=== PATIENT | male | born 1950 | race Caucasian/White ===

== ENCOUNTER 2018-11-12 14:50 | Emergency (ER) | payer MEDICARE, MEDICAID ==
[2018-11-12] MEDS ORDERED: Sodium Chloride 0.9% 10 ML Syringe FLUSH PRN (15:28)
--- NOTE | 2018-11-12 15:34 | EDM.PDOC ---
ED HPI GENERAL MEDICAL PROBLEM - General Chief Complaint: General Stated Complaint: CHEST PAIN Time Seen by Provider: 11/12/18 15:15 Source of Information: Reports: Patient, RN (I talked with RNs at [facility]; [facility] and Od[place]) History Limitations: Reports: Other (some confusion; consistent with his baseline moderate dementia per RN) - History of Present Illness INITIAL COMMENTS - FREE TEXT/NARRATIVE: Patient presents with complaint of headache and chest pressure that started about 1000 (5.5 hours ago) and lasted a couple hours, per patient. He says they are both resolved now. He denies any accompanying blurry vision. The [facility] RNs informed me that he had come up to the nurses station in his wheelchair requesting trip to ER due to headache, chest pain and visual disturbance. 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 While here he has been mostly cooperative but occasionally very irritable and not allowing anyone to come close, do vitals or other assistance. This morning he was like this prior to requesting ER. - Related Data Allergies Allergy/AdvReac Type Severity Reaction Status Date / Time No Known Drug Allergies Allergy Cannot Verified 11/12/18 15:18 Remember Home Meds: Home Meds Metoprolol Tartrate [Lopressor] 100 mg PO 0700,1600 11/12/18 [History] amLODIPine Besylate [Norvasc] 5 mg PO 0900,1600 11/12/18 [History] levETIRAcetam [Keppra] 500 mg PO DAILY 11/12/18 [History] ED ROS GENERAL - Review of Systems Review Of Systems: See Below Constitutional: Denies: Fever, Chills, Malaise, Weakness (not acute) HEENT: Reports: Other (no facial droop or slurred speech). Denies: Eye Discharge, Vision Change Respiratory: Denies: Shortness of Breath, Cough Cardiovascular: Denies: Chest Pain, Lightheadedness, Syncope Endocrine: Denies: Fatigue GI/Abdominal: Reports: Nausea (he complained of nausea at the [facility] per RN; none now). Denies: Abdominal Pain, Vomiting : Reports: No Symptoms Musculoskeletal: Denies: Neck Pain (not acute), Shoulder Pain, Arm Pain, Back Pain, Hand Pain, Leg Pain Skin: Denies: Cyanosis, Jaundice, Mottled, Pallor, Diaphoresis Neurological: Reports: Seizure (he has a seizure disorder but nothing today per RN). Denies: Headache, Syncope Psychiatric: Reports: Agitation (not now but earlier today per RN) ED EXAM, GENERAL - Physical Exam Exam: See Below Exam Limited By: Altered Mental Status (He seems to do fairly well with some things) General Appearance: Alert, WD/WN, No Apparent Distress Eye Exam: Bilateral Eye: EOMI, Normal Inspection, PERRL Ears: Normal External Exam, Hearing Grossly Normal Nose: Normal Inspection, No Blood Throat/Mouth: Normal Inspection, Normal Lips, Normal Oropharynx, Normal Voice, No Airway Compromise Head: Atraumatic, Normocephalic Neck: Normal Inspection, Full Range of Motion Respiratory/Chest: No Respiratory Distress, Lungs Clear, Normal Breath Sounds, No Accessory Muscle Use Cardiovascular: Normal Peripheral Pulses, Regular Rate, Rhythm, No Murmur GI/Abdominal: Normal Bowel Sounds, Soft, Non-Tender, No Organomegaly, No Distention Extremities: Other (complete right paralysis of upper and lower ext. Sensation and circulation are intact.) Neurological: Alert, Oriented (to person and place but partially to time (knows its sunday)) Psychiatric: Normal Affect, Normal Mood Skin Exam: Warm, Dry, Intact, Normal Color, No Rash Course - Vital Signs Last Recorded V/S: Last Vital Signs Temp 97.9 F 11/12/18 15:14 Pulse 61 11/12/18 15:29 Resp 16 11/12/18 15:29 BP 142/63 H 11/12/18 15:29 Pulse Ox 94 L 11/12/18 15:29 - Orders/Labs/Meds Orders: Active Orders 24 hr Category Date Time Status EKG Documentation Completion [RC] ASDIRECTED Care 11/12/18 15:29 Active Sodium Chloride 0.9% [Saline Flush] Med 11/12/18 15:28 Active 10 ml FLUSH Q8HR PRN Saline Lock Insert [OM.PC] Routine Oth 11/12/18 15:28 Ordered EKG 12 Lead [EK] Routine Ther 11/12/18 15:28 Ordered Medication Orders Sodium Chloride (Saline Flush) 10 ml FLUSH Q8HR PRN PRN Reason: keep vein open Labs: Laboratory Tests 11/12/18 11/12/18 Range/Units 15:07 15:07 WBC 7.16 (5.00-10.00) 10^3/uL RBC 4.40 L (4.50-6.00) 10^6/uL Hgb 14.3 (13.0-17.0) g/dL Hct 43.3 (40.0-52.0) % MCV 98.4 H (82.0-92.0) fL MCH 32.5 H (27.0-31.0) pg MCHC 33.0 (32.0-36.0) g/dL RDW 13.7 (11.5-14.5) % Plt Count 192 (150-400) 10^3/uL MPV 10.9 H (7.4-10.4) fL Immature Gran % (Auto) 0.1 (0.0-5.0) % Neut % (Auto) 63.5 (50.0-70.0) % Lymph % (Auto) 27.8 (20.0-40.0) % [place] % (Auto) 7.0 (2.0-8.0) % Eos % (Auto) 1.3 (1.0-3.0) % Baso % (Auto) 0.3 (0.0-1.0) % Immature Gran # (Auto) 0.01 (0.00-0.50) 10^3/uL Neut # (Auto) 4.55 (2.50-7.00) 10^3/uL Lymph # (Auto) 1.99 (1.00-4.00) 10^3/uL [place] # (Auto) 0.50 (0.10-0.80) 10^3/uL Eos # (Auto) 0.09 L (0.10-0.30) 10^3/uL Baso # (Auto) 0.02 (0.00-0.10) 10^3/uL Sodium 145 (136-145) mmol/L Potassium 4.2 (3.3-5.3) mmol/L Chloride 108 (98-115) mmol/L Carbon Dioxide 31.7 (21.0-32.0) mmol/L Anion Gap 9.5 (5-15) mmol/L BUN 20 (6-25) mg/dL Creatinine 0.53 (0.51-1.17) mg/dL Est Cr Clr Drug Dosing 135.82 mL/min Estimated GFR (MDRD) > 60 mL/min Glucose 109 H (75 - 99) mg/dL Calcium 8.8 (8.7-10.3) mg/dL Troponin I < 0.04 (0.00-0.070) ng/mL Meds: Medications Generic Name Dose Route Start Last Admin Trade Name Freq PRN Reason Stop Dose Admin Sodium Chloride 10 ml 11/12/18 15:28 Saline Flush FLUSH Q8HR PRN keep vein open - Re-Assessments/Exams Free Text/Narrative Re-Assessment/Exam: 11/12/18 15:58 Labs and EKG okay. With all symptoms completely resolved prior to ER arrival and normal workup, I feel patient is okay to return to [facility] with no changes in treatment. He should follow up with PCP in a few days. Pt stable at discharge. Departure - Departure Time of Disposition: 15:53 Disposition: DC/Tfer to SNF 03 Condition: Good Clinical Impression: Chest pain with low risk for cardiac etiology - Discharge Information Referrals: Karolyn Elizondo MD [Primary Care Provider] - Forms: ED Department Discharge Additional Instructions: 1. Continue current medications. 2. Follow up with PCP in 2-5 days. - My Orders Last 24 Hours: My Active Orders 11/12/18 15:28 Sodium Chloride 0.9% [Saline Flush] 10 ml FLUSH Q8HR PRN Saline Lock Insert [OM.PC] Routine EKG 12 Lead [EK] Routine 11/12/18 15:29 EKG Documentation Completion [RC] ASDIRECTED - Assessment/Plan Last 24 Hours: My Active Orders 11/12/18 15:28 Sodium Chloride 0.9% [Saline Flush] 10 ml FLUSH Q8HR PRN Saline Lock Insert [OM.PC] Routine EKG 12 Lead [EK] Routine 11/12/18 15:29 EKG Documentation Completion [RC] ASDIRECTED
[2018-11-12 15:44] LABS: ANION GAP 9.5 mmol/L (5-15); CHLORIDE,CL 108 mmol/L (98-115); SODIUM,NA 145 mmol/L (136-145)
[2018-11-12] MEDS ORDERED: Cephalexin 250 MG Cap PO ONE (17:18)
== END 2018-11-12 17:20 ==
LOC: KA.ED 14:50
DX: R07.89 Other chest pain (principal); N39.0 Urinary tract infection, site not specified; Z79.899 Other long term (current) drug therapy
CPT/HCPCS: 80048; 81001; 84484; 85025; 87086; 87088; 93005; 99285; A9270; 99283